=== PATIENT | female | born 1965 | race Caucasian/White ===

== ENCOUNTER 2017-03-27 09:02 | Day surgery (SDC) | payer OTHER ==
[~2017-03-27] VITALS: Ht 162.6 cm; Wt 81.6 kg
[2017-03-27 09:46] VITALS: BP 128/76; PULSE 79; TEMP 97.6
[2017-03-27] MEDS ORDERED: MULTIPLE VITAMI1 CAP PO (09:55)
[2017-03-27] MEDS ORDERED: IRON325 MG PO (09:56)
[2017-03-27] MEDS ORDERED: PROTONIX 40MG T40 MG PO (09:56)
[2017-03-27 11:15] VITALS: BP 98/61; PULSE 76; TEMP 97.6
[2017-03-27 11:30] VITALS: BP 112/56; PULSE 78
[2017-03-27 11:45] VITALS: BP 106/43; PULSE 18
[2017-03-27 12:34] VITALS: BP 97/60; PULSE 93; TEMP 98
[2017-03-27 17:21] VITALS: BP 99/59; PULSE 74
== END 2017-03-27 12:47 | disposition home or self-care (01) ==
LOC: SDCO 09:02
DX: Z12.11 Encounter for screening for malignant neoplasm of colon (principal); K21.9 Gastro-esophageal reflux disease without esophagitis; K92.1 Melena; D50.9 Iron deficiency anemia, unspecified; K92.0 Hematemesis; F17.210 Nicotine dependence, cigarettes, uncomplicated; E66.9 Obesity, unspecified; Z98.84 Bariatric surgery status; Z80.0 Family history of malignant neoplasm of digestive organs; Z80.3 Family history of malignant neoplasm of breast
CPT/HCPCS: J2250; J2405; J3010; J7030

== ENCOUNTER 2017-05-17 16:33 | Observation (INO) | payer OTHER ==
[~2017-05-17] VITALS: Ht 162.6 cm; Wt 82.6 kg
[~2017-05-17 16:33] MED LIST: IRON325 MG PO; MULTIPLE VITAMI1 CAP PO; PROTONIX 40MG T40 MG PO
[2017-05-17 17:37] LABS: BASO % 0.4 % (0.0-2.0); EOS % 0.8 % (0-4.0); GRAN # 2.9 (1.4-6.5); GRAN % 57.5 % (42.2-75.2); LYMPH # 1.5 (1.2-3.4); LYMPH % 30.3 % (20.0-51.0); MEAN CELL VOLUME 96 fl (80.0-100.0); MEAN CORPUSCULAR HGB CONC 34 g/dl (33.0-37.0); MEAN PLATELET VOLUME 9.6 fl (7.4-10.4); MONO # 0.5 (0.1-0.6); MONO % 10.6 % (1.7-9.3); PLATELET COUNT 305 K/mm3 (130-400); RED BLOOD COUNT 3.66 M/mm3 (4.10-5.30); REDCELL DISTRIBUTION WIDTH-CV 12.3 % (11.5-14.5)
[2017-05-17 17:37] LABS: PH 6 (5-8); URINE APPEARANCE Clear; URINE BACTERIA None Seen /hpf; URINE BILIRUBIN Negative (NEGATIVE); URINE BLOOD Negative (NEGATIVE); URINE COLOR Yellow; URINE GLUCOSE Negative (NEGATIVE); URINE KETONE Negative (NEGATIVE); URINE RBC 0-2 /hpf; URINE WBC 0-2 /hpf
[2017-05-17 17:38] LABS: HEMOGLOBIN 11.9 g/dl (12.5-16.0); MEAN CORPUSCULAR HEMOGLOBIN 33 pg (27.0-31.0)
[2017-05-17] MEDS ORDERED: CELEXA 20MG20 MG/TAB PO (17:41)
[2017-05-17 17:50] LABS: ADJUSTED CALCIUM 9.3 mg/dL (8.4-10.2); ALANINE AMINOTRANSFERASE 31 U/L (9-52); ALBUMIN 3.8 gm/dL (3.5-5.0); ALKALINE PHOSPHATASE 81 U/L (50-136); ANION GAP 8 mmol/L (7-16); BILIRUBIN,TOTAL 0.5 mg/dL (0.0-1.0); BLOOD UREA NITROGEN 14 mg/dL (7-17); CALCIUM 9.1 mg/dL (8.4-10.2); CARBON DIOXIDE 23 mmol/L (22-30); CHLORIDE 105 mmol/L (98-107); CREATININE, serum 0.52 mg/dL (0.52-1.25); GLUCOSE 100 mg/dL (74-106); LIPASE 96 U/L (23-300); SODIUM 136 mmol/L (137-145); TOTAL PROTEIN 6.5 gm/dL (6.4-8.2)
[2017-05-17 17:52] LABS: C-REACTIVE PROTEIN < 0.5 mg/dL (0.0-0.9)
[2017-05-17 18:02] LABS: TROPONIN-I < 0.012 ng/mL (0.000-0.034)
[2017-05-17 20:30] VITALS: BP 137/81; PULSE 63; TEMP 98.1
[2017-05-17 23:21] LABS: PROTHROMBIN TIME 11.6 SECONDS (9.7-12.8)
[2017-05-17 23:23] LABS: PARTIAL THROMBOPLASTIN TIME 35.9 SECONDS (26.0-37.0)
[2017-05-18 02:00] VITALS: BP 113/71; PULSE 63; TEMP 98.1
[2017-05-18 05:01] VITALS: BP 139/77; BP 154/61; PULSE 75; PULSE 85; TEMP 97.6; TEMP 98
[2017-05-18 07:29] LABS: BASO % 0.2 % (0.0-2.0); EOS # 0.1 (0.0-0.7); EOS % 1.1 % (0-4.0); GRAN # 2.2 (1.4-6.5); GRAN % 50.2 % (42.2-75.2); LYMPH # 1.7 (1.2-3.4); LYMPH % 37.8 % (20.0-51.0); MEAN CELL VOLUME 98 fl (80.0-100.0); MEAN CORPUSCULAR HGB CONC 34 g/dl (33.0-37.0); MEAN PLATELET VOLUME 10.1 fl (7.4-10.4); MONO # 0.5 (0.1-0.6); MONO % 10.5 % (1.7-9.3); PLATELET COUNT 266 K/mm3 (130-400); RED BLOOD COUNT 3.15 M/mm3 (4.10-5.30); REDCELL DISTRIBUTION WIDTH-CV 12.7 % (11.5-14.5); WHITE BLOOD COUNT 4.5 K/mm3 (4.8-10.8)
[2017-05-18 07:30] LABS: HEMATOCRIT 30.7 % (37.0-47.0); HEMOGLOBIN 10.4 g/dl (12.5-16.0); MEAN CORPUSCULAR HEMOGLOBIN 33 pg (27.0-31.0)
[2017-05-18 07:35] LABS: CALCIUM 8.4 mg/dL (8.4-10.2); CREATININE, serum 0.49 mg/dL (0.52-1.25); POTASSIUM 3.8 mmol/L (3.4-5.0)
[2017-05-18 13:09] VITALS: BP 92/54; PULSE 72; TEMP 98.4
[2017-05-18 21:35] VITALS: BP 117/93; PULSE 67; PULSE 671; TEMP 98.9
[2017-05-19 05:54] VITALS: BP 144/70; PULSE 80; TEMP 98.3
[2017-05-19 09:43] VITALS: BP 127/68; PULSE 71; TEMP 99
[2017-05-19 14:09] VITALS: BP 1118/54; PULSE 71
[2017-05-19] MEDS ORDERED: LEVBID0.375 MG PO (17:40)
[2017-05-19] MEDS ORDERED: BUSPAR5 MG PO (17:41)
[2017-05-19 18:11] VITALS: BP 126/73; PULSE 77; TEMP 98
== END 2017-05-19 20:21 | disposition home or self-care (01) ==
LOC: COL.ER 16:33 → SURG 19:41
PROVIDERS: Emergency Medicine; Nurse Practitioner Family
DX: G89.29 Other chronic pain (principal); R10.9 Unspecified abdominal pain; F41.8 Other specified anxiety disorders; D64.9 Anemia, unspecified; Z98.84 Bariatric surgery status; Z90.49 Acquired absence of other specified parts of digestive tract; K21.9 Gastro-esophageal reflux disease without esophagitis; Z96.60 Presence of unspecified orthopedic joint implant; F17.210 Nicotine dependence, cigarettes, uncomplicated; Z87.19 Personal history of other diseases of the digestive system
CPT/HCPCS: C9113; G0378; J1650; J2060; J2405; J2704; J3010; J7030

== ENCOUNTER 2017-05-20 02:24 | Emergency (ER) | payer OTHER ==
[~2017-05-20] VITALS: Ht 162.6 cm; Wt 80.9 kg
[~2017-05-20 02:24] MED LIST changes: +BUSPAR5 MG PO; +CELEXA 20MG20 MG/TAB PO; +LEVBID0.375 MG PO
[2017-05-20 02:26] VITALS: TEMP 98
[2017-05-20 03:20] LABS: BASO % 0.3 % (0.0-2.0); EOS # 0.1 (0.0-0.7); EOS % 1.2 % (0-4.0); GRAN # 3.9 (1.4-6.5); GRAN % 66.4 % (42.2-75.2); HEMATOCRIT 34.1 % (37.0-47.0); HEMOGLOBIN 11.9 g/dl (12.5-16.0); LYMPH # 1.3 (1.2-3.4); LYMPH % 21.3 % (20.0-51.0); MEAN CELL VOLUME 94 fl (80.0-100.0); MEAN CORPUSCULAR HEMOGLOBIN 33 pg (27.0-31.0); MEAN CORPUSCULAR HGB CONC 35 g/dl (33.0-37.0); MEAN PLATELET VOLUME 10.1 fl (7.4-10.4); MONO # 0.6 (0.1-0.6); MONO % 10.5 % (1.7-9.3); PLATELET COUNT 322 K/mm3 (130-400); RED BLOOD COUNT 3.64 M/mm3 (4.10-5.30); REDCELL DISTRIBUTION WIDTH-CV 12.2 % (11.5-14.5); WHITE BLOOD COUNT 5.9 K/mm3 (4.8-10.8)
[2017-05-20 03:24] LABS: PH 6 (5-8); SQUAMOUS EPITHELIAL 20-50 /hpf; URINE APPEARANCE Cloudy; URINE BACTERIA Rare /hpf; URINE BILIRUBIN Negative (NEGATIVE); URINE BLOOD Negative (NEGATIVE); URINE COLOR Yellow; URINE GLUCOSE Negative (NEGATIVE); URINE KETONE Negative (NEGATIVE)
[2017-05-20 03:32] LABS: ADJUSTED CALCIUM 8.8 mg/dL (8.4-10.2); ALANINE AMINOTRANSFERASE 31 U/L (9-52); ALBUMIN 3.9 gm/dL (3.5-5.0); ALKALINE PHOSPHATASE 84 U/L (50-136); ANION GAP 10 mmol/L (7-16); BILIRUBIN,TOTAL 0.4 mg/dL (0.0-1.0); BLOOD UREA NITROGEN 14 mg/dL (7-17); C-REACTIVE PROTEIN < 0.5 mg/dL (0.0-0.9); CALCIUM 8.7 mg/dL (8.4-10.2); CARBON DIOXIDE 24 mmol/L (22-30); CHLORIDE 104 mmol/L (98-107); CREATININE, serum 0.57 mg/dL (0.52-1.25); GLUCOSE 97 mg/dL (74-106); LIPASE 73 U/L (23-300); POTASSIUM 3.7 mmol/L (3.4-5.0); SODIUM 137 mmol/L (137-145); TOTAL PROTEIN 6.6 gm/dL (6.4-8.2)
[2017-05-20 03:47] LABS: ERYTHROCYTE SEDIMENTATION RATE 19 mm/hr (0-20)
[2017-05-20 05:17] VITALS: BP 142/92; PULSE 84
== END 2017-05-20 05:17 | disposition home or self-care (01) ==
LOC: COL.ER 02:24
PROVIDERS: Emergency Medicine
DX: R10.11 Right upper quadrant pain (principal); R10.13 Epigastric pain; R63.0 Anorexia; M54.6 Pain in thoracic spine; G89.29 Other chronic pain; Z98.0 Intestinal bypass and anastomosis status; Z98.84 Bariatric surgery status; F41.9 Anxiety disorder, unspecified
CPT/HCPCS: C9113; J1630; J1885; J7030

== ENCOUNTER 2019-04-17 02:37 | Emergency (ER) | payer SELFPAY ==
[~2019-04-17] VITALS: Wt 104.5 kg
[2019-04-17 03:14] LABS: BASO % 0.2 % (0.0-2.0); EOS # 0.1 (0.0-0.7); EOS % 0.7 % (0-4.0); GRAN # 6.4 (1.4-6.5); HEMOGLOBIN 12.4 g/dl (12.5-16.0); LYMPH # 1.4 (1.2-3.4); LYMPH % 16.1 % (20.0-51.0); MEAN CELL VOLUME 93 fl (80.0-100.0); MEAN CORPUSCULAR HEMOGLOBIN 32 pg (27.0-31.0); MEAN CORPUSCULAR HGB CONC 34 g/dl (33.0-37.0); MEAN PLATELET VOLUME 9.5 fl (7.4-10.4); MONO # 0.7 (0.1-0.6); MONO % 7.7 % (1.7-9.3); PLATELET COUNT 337 K/mm3 (130-400); RED BLOOD COUNT 3.94 M/mm3 (4.10-5.30); REDCELL DISTRIBUTION WIDTH-CV 13.2 % (11.5-14.5)
[2019-04-17 03:15] LABS: HEMATOCRIT 36.8 % (37.0-47.0)
[2019-04-17 03:34] LABS: ALANINE AMINOTRANSFERASE 14 U/L (9-52); ALBUMIN 3.6 gm/dL (3.5-5.0); ALKALINE PHOSPHATASE 120 U/L (50-136); ANION GAP 9 mmol/L (7-16); AST,SGOT 17 U/L (15-37); BILIRUBIN,TOTAL 0.3 mg/dL (0.0-1.0); BLOOD UREA NITROGEN 13 mg/dL (7-17); CALCIUM 8.7 mg/dL (8.4-10.2); CARBON DIOXIDE 24 mmol/L (22-30); CHLORIDE 106 mmol/L (98-107); CREATININE, serum 0.54 (0.52-1.25); GLUCOSE 115 mg/dL (74-106); LIPASE 57 U/L (23-300); POTASSIUM 4.2 mmol/L (3.4-5.0); SODIUM 139 mmol/L (137-145); TOTAL PROTEIN 6.5 gm/dL (6.4-8.2)
[2019-04-17 03:46] LABS: COLLECTION METHOD CLEAN CATCH
[2019-04-17 03:48] LABS: TROPONIN-I < 0.012 ng/mL (0.000-0.035)
[2019-04-17 04:24] LABS: MUCOUS Present /lpf; PH 6 (5-8); SQUAMOUS EPITHELIAL 0-2 /hpf; URINE APPEARANCE Clear; URINE BACTERIA None Seen /hpf; URINE BILIRUBIN Negative (NEGATIVE); URINE BLOOD Negative (NEGATIVE); URINE COLOR Yellow; URINE GLUCOSE Negative (NEGATIVE); URINE KETONE Negative (NEGATIVE); URINE LEUKOCYTE ESTERASE Negative (NEGATIVE); URINE NITRATE Negative (NEGATIVE); URINE PROTEIN(semi-quant) Negative (NEGATIVE)
[2019-04-17] MEDS ORDERED: LIORESAL 1010 MG/TAB PO (05:25)
[2019-04-17] MEDS ORDERED: NORCO 325 MG-51 TAB PO (05:25)
[2019-04-17] MEDS ORDERED: CARAFATE 1GM1 G PO (05:25)
[2019-04-17] MEDS ORDERED: ZOFRAN ODT4 MG PO (05:25)
[2019-04-17 07:40] VITALS: BP 126/92; PULSE 90; TEMP 98.6
== END 2019-04-17 07:40 | disposition home or self-care (01) ==
LOC: COL.ER 02:37
PROVIDERS: Emergency Medicine
DX: R10.12 Left upper quadrant pain (principal); Z90.49 Acquired absence of other specified parts of digestive tract; Z98.84 Bariatric surgery status
CPT/HCPCS: C9113; J2060; J2550; J3010; J7030; Q9967